=== PATIENT | female | born 1950 | race American Indian/Alaskan Native ===

== ENCOUNTER 2018-03-04 14:31 | Emergency (ER) | payer MEDICARE ==
[2018-03-04 15:13] VITALS: BP 139/73; PULSE 90; RESP 20; TEMP 98.9
--- NOTE | 2018-03-04 15:13 | ED PDOC ---
Arrival/HPI - General Time Seen by Provider: 03/04/18 15:02 Historian: Patient - History of Present Illness Narrative History of Present Illness (Text): 03/04/18 15:02 67 y/o female, pmh including dm, not on any blood thinner or anticoagulant, c/o rt. shoulder pain x 2 weeks s/p fall on the rt. shoulder. Pt. stated that she was walking, tripped and landed on the rt. shoulder to prevent the head/neck/ back injury, no numbness or tingling, no chest pain/shortness of breath, no night sweat, no change in vision, no night sweat, no other medical or psychological complaints. Past Medical History - Provider Review Nursing Documentation Reviewed: Yes Family/Social History - Physician Review Nursing Documentation Reviewed: Yes Family/Social History: Unknown Family HX Allergies/Home Meds Allergies/Adverse Reactions: Allergies No Known Allergies Allergy (Verified 03/04/18 15:05) Home Medications: Home Meds Medication Instructions Recorded Confirmed Insulin Aspar/Insulin N 70/30 15 units SC BID 03/04/18 03/04/18 [Novolog Mix 70/30-U/ml 3Ml] MetFORMIN [glucoPHAGE] 1,000 mg PO BID 03/04/18 03/04/18 Review of Systems - Review of Systems Constitutional: absent: Fatigue, Fevers Eyes: absent: Vision Changes ENT: absent: Hearing Changes Respiratory: absent: SOB, Cough Cardiovascular: absent: Chest Pain Gastrointestinal: absent: Abdominal Pain, Diarrhea, Nausea, Vomiting Musculoskeletal: Arthralgias. absent: Back Pain, Myalgias Skin: absent: Rash, Pruritis Neurological: absent: Headache, Dizziness, Focal Weakness, Gait Changes, Facial Droop, Disequilibrium Psychiatric: absent: Anxiety, Depression, Suicidal Ideation Physical Exam Vital Signs Reviewed: Yes Vital Signs Temp Pulse Resp BP Pulse Ox 03/04/18 15:11 98.9 F 90 20 139/73 95 Temperature: Afebrile Blood Pressure: Normal Pulse: Regular Respiratory Rate: Normal Appearance: Positive for: Well-Appearing, Non-Toxic, Comfortable Pain Distress: Mild Mental Status: Positive for: Alert and Oriented X 3 - Systems Exam Head: Present: Atraumatic, Normocephalic, Other. No: Tenderness, Contusion, Swelling, Ecchymosis, Abrasion, Laceration Pupils: Present: PERRL Extroacular Muscles: Present: EOMI Conjunctiva: Present: Normal Ears: Present: NORMAL TM, Normal Canal. No: Erythema Mouth: Present: Moist Mucous Membranes Pharnyx: No: ERYTHEMA, EXUDATE, TONSILS ENLARGED Nose (External): Present: Atraumatic. No: Abrasion, Contusion, Laceration Nose (Internal): Present: Normal Inspection, No Active Bleeding. No: Rhinorrhea , Septal Hematoma, Epistaxis Neck: Present: Normal Range of Motion, Trachea Midline. No: MIDLINE TENDERNESS , Paraspinal Tenderness, Lymphadenopathy Respiratory/Chest: Present: Clear to Auscultation, Good Air Exchange. No: Respiratory Distress, Accessory Muscle Use Cardiovascular: Present: Regular Rate and Rhythm, Normal S1, S2. No: Murmurs Abdomen: No: Tenderness, Distention, Peritoneal Signs, Rebound, Guarding Back: Present: Normal Inspection Upper Extremity: Present: Normal Inspection, Normal ROM, NORMAL PULSES, Neurovascularly Intact, Capillary Refill < 2s, Other (Rt. shoulder: +ttp on the lateral shoulder region, no swelling, no deformity, skin intact, pain is 100% reproducible when rt. shoulder extension, sensation intact, motor 5/5. ). No: Cyanosis, Edema, Tenderness, Swelling, Deformity Lower Extremity: Present: Normal Inspection. No: Edema Neurological: Present: GCS=15, CN II-XII Intact, Speech Normal, Motor Func Grossly Intact, Normal Sensory Function, Normal Cerebellar Funct, Gait Normal, Memory Normal, Normal 2Pt Descrimination, Other (Bilateral upper and lower extremities with full sensation intact and motor 5/5. ) Skin: Present: Warm, Dry, Normal Color. No: Rashes Psychiatric: Present: Alert, Oriented x 3, Normal Insight, Normal Concentration Medical Decision Making ED Course and Treatment: 03/04/18 15:22 -Rt. shoulder xray -observe and reassess 03/04/18 15:43 -Rt. shoulder xray show no fracture or dislocation. -Sling applied with neurovascular intact. -I explained all xray result with the patient, advised to have outpatient orthopedic and outpatient MRI follow up for soft tissue injury including but not limited to tendon/muscle/nerve/cartilage injury. Pt. verbally expressed understanding. -Discharge home with home with sling, tylenol, ice compression, follow up with your own pmd and orthopedic within 2 days, return to the ER for any new or worsening signs or symptoms. - RAD Interpretation Radiology Orders: 03/04/18 15:13 SHOULDER RIGHT [RAD] Stat HISTORY: rt. shoulder injury x 2 weeks. COMPARISON: No prior. FINDINGS: BONES: Normal. No fracture. JOINTS: Normal. Glenohumeral and acromioclavicular joints preserved. No osteoarthritis. SOFT TISSUES: Normal. OTHER FINDINGS: None. IMPRESSION: Normal radiographs of the right shoulder. Gallery Or Museum Guide: Radiologist - PA / MERCHANDISING MANAGER / Resident Statement / has reviewed & agrees with the documentation as recorded. Disposition/Present on Arrival - Present on Arrival Any Indicators Present on Arrival: No History of DVT/PE: No History of Uncontrolled Diabetes: No Urinary Catheter: No History of Decub. Ulcer: No - Disposition Have Diagnosis and Disposition been Completed?: Yes Diagnosis: Shoulder injury, Shoulder pain Disposition: HOME/ ROUTINE Disposition Time: 15:24 Patient Plan: Discharge Patient Problems: Current Active Problems Problem Status Onset Shoulder injury Acute Shoulder pain Acute Condition: GOOD Additional Instructions: -Discharge home with home with sling, tylenol, ice compression, follow up with your own pmd and orthopedic within 2 days, return to the ER for any new or worsening signs or symptoms. Referrals: Curly Carpenter DO [Staff Provider] - Follow up with primary [facility] [place] [Outside] - Follow up with primary Forms: WORK NOTE
--- NOTE | 2018-03-04 15:44 | RAD ---
Date of service: 03/04/2018 PROCEDURE: Radiographs of the Right Shoulder HISTORY: rt. shoulder injury x 2 weeks. COMPARISON: No prior. FINDINGS: BONES: Normal. No fracture. JOINTS: Normal. Glenohumeral and acromioclavicular joints preserved. No osteoarthritis. SOFT TISSUES: Normal. OTHER FINDINGS: None. IMPRESSION: Normal radiographs of the right shoulder.
[2018-03-04 16:30] VITALS: O2SAT 96
== END 2018-03-04 16:10 | disposition home or self-care (01) ==
LOC: ED 14:31
DX: S49.91XA Unspecified injury of right shoulder and upper arm, initial encounter (principal); W01.0XXA Fall on same level from slipping, tripping and stumbling without subsequent striking against object, initial encounter; Y92.9 Unspecified place or not applicable; M25.511 Pain in right shoulder